=== PATIENT | female | born 1995 | race Caucasian/White ===

== ENCOUNTER 2016-08-02 16:03 | Emergency (ER) | payer OTHER ==
--- NOTE | ~2016-08-02 | CR257 ---
[facility] A Service of [facility] RADIOLOGY TEXT RESULTS PATIENT: GEOVANI BAKER LOCATION: SED : [birth year] UNIT #: [id number] AGE: [address]: COOPER GILBERT SEX: F ORDER DR: [id number] [place] [id number] E MR#: [id number] Acc #: [id number] NAME: GEOVANI BAKER : 1995 SEX: F STUDY DATE/TIME: 08/02/2016 16:40 UNIT: SED ROOM: STUDY DESCRIPTION: CR Toe 2 Views 3Rd Rt Attending Physician: Cooper Gilbert Aprn Ordering Physician: Cooper Gilbert Aprn Primary Care Physician: Primary Care Physician No MEDICAL IMAGING REPORT This report is preliminary unless electronic signature is present. EXAM Right third toe series HISTORY Trauma, pain and trauma today. 3 weeks. Dropped box today, hit with door. FINDINGS AP, lateral and oblique radiographs of the right third toe show no definite fracture. No traumatic malalignment. The lateral view is limited due to digital overlap. There is no soft tissue defect, subcutaneous air or radiodense foreign body. There appears to be mild generalized swelling of the third toe. Other visualized bony structures unremarkable. No other acute appearing soft tissue abnormality. If the patient has ongoing symptoms, consider followup imaging. Dictated by... Manny Almeida M.D. THIS IS AN ELECTRONICALLY VERIFIED REPORT Manny Almeida M.D. at 08/03/2016 11:31 AM ELMER/galen TD: 08/03/2016 04:06 JOB #: [id number] MEDICAL IMAGING REPORT Page 1 of 1
[~2016-08-02 16:03] MED LIST: ANTIBIOTIC PO; ANUSOL SUPP1 SUPP PR; CLINDAMYCIN HC300 MG PO; FLAGYL PO; HYDROCODON-ACE1 EAC7 PO; IBUPROFEN PO; MACROBID 100 M100 MG PO; NO MEDICATIONS; PRENATAL1 TA1 PO; ZOFRAN ODT4 MG PO; ZOFRANODT PO
== END 2016-08-02 18:05 | disposition home or self-care (01) ==
LOC: SED 16:03
DX: S90.121A Contusion of right lesser toe(s) without damage to nail, initial encounter (principal); F17.210 Nicotine dependence, cigarettes, uncomplicated; W20.8XXA Other cause of strike by thrown, projected or falling object, initial encounter; Y92.9 Unspecified place or not applicable
CPT/HCPCS: 29405; 73660; 99283

== ENCOUNTER 2016-10-13 19:41 | Emergency (ER) | payer OTHER ==
[~2016-10-13] VITALS: Ht 154.9 cm; Wt 77.1 kg
[2016-10-13] MEDS ORDERED: NO MEDICATIONS (20:01)
== END 2016-10-13 20:55 | disposition home or self-care (01) ==
LOC: SED 19:41
DX: S00.552A Superficial foreign body of oral cavity, initial encounter (principal); L08.9 Local infection of the skin and subcutaneous tissue, unspecified; F41.9 Anxiety disorder, unspecified; Z88.8 Allergy status to other drugs, medicaments and biological substances; X58.XXXA Exposure to other specified factors, initial encounter
CPT/HCPCS: 99283